=== PATIENT | female | born 1950 | race Caucasian/White ===

== ENCOUNTER 2016-07-31 03:26 | Observation (INO) | payer MEDICARE ==
--- NOTE | 2016-07-31 04:18 | ER Document Report ---
ED General - General Chief Complaint: Breathing Difficulty Stated Complaint: DIFFICULTY BREATHING Notes: Patient is 65-year-old female presents with complaint of cough congestion and felt sick for 1 week. She's also had some nausea and vomiting. She has seen her doctor 3 times. Her the nurse practitioner at her primary care clinic placed her on amoxicillin but she's allergic to it. I then placed her on doxycycline. Then give her codeine cough medicine. She is allergic to codeine and made her vomit violently. I called her and Tobi and she came in tonight because she continues to feel unwell. She says at home her oxygen saturation was 87%. She does not wear oxygen. She does have a history of left pneumonectomy. She has not had a fever home however is felt chilled at times. No abdominal pain. No chest pain. No other complaints at this time. TRAVEL OUTSIDE OF THE [place] IN LAST 30 DAYS: No - Related Data Allergies/Adverse Reactions: codeine [Codeine] Adverse Reaction (Mild, Verified 07/31/16 03:45) Nausea Past Medical History - Social History Smoking Status: Former Smoker Frequency of alcohol use: None Drug Abuse: None Family History: CAD - Past Medical History Cardiac Medical History: Reports: Hx Atrial Fibrillation - post pneumonectomy Pulmonary Medical History: Reports: Hx Bronchitis, Hx COPD, Hx Pneumonia Malignancy Medical History: Reports: Hx Lung Cancer GI Medical History: Reports: Hx Gastroesophageal Reflux Disease Past Surgical History: Reports: Hx Appendectomy, Hx Tubal Ligation - Immunizations Hx Diphtheria, Pertussis, Tetanus Vaccination: No Hx Pneumococcal Vaccination: 06/13/10 Review of Systems - Review of Systems Notes: My Normal Review Basic REVIEW OF SYSTEMS: CONSTITUTIONAL : Denies fever, chills, or sweats. Denies recent illness. EENT: Denies eye, ear, throat, or mouth pain or symptoms. Denies nasal or sinus congestion. CARDIOVASCULAR: Denies chest pain. RESPIRATORY: Cough and shortness of breath GASTROINTESTINAL: Denies abdominal pain. Some vomiting Denies constipation. Last BM: MUSCULOSKELETAL: Denies neck or back pain or joint pain or swelling. SKIN: Denies rash or skin lesions. NEUROLOGICAL: Denies altered mental status or loss of consciousness. Denies headache. Denies weakness or paralysis or loss of use of either side. Denies problems with gait or speech. Denies sensory or motor loss. ALL OTHER SYSTEMS REVIEWED AND NEGATIVE. Physical Exam - Vital signs Vitals: Temp Resp Pulse Ox 98 F 23 H 95 07/31/16 03:38 07/31/16 03:38 07/31/16 03:38 - Notes Notes: General Appearance: Well nourished, alert, cooperative, no acute distress, no obvious discomfort. Vitals: reviewed, See vital signs table. Head: no swelling or tenderness to the head Eyes: PERRL, EOMI, Conjuctiva clear Mouth: No decreasd moisture Throat: No tonsillar inflammation, No airway obstruction, No lymphadenopathy Neck: Supple, no neck tenderness, No thyromegaly Lungs: Fair exchange. Wheezing in the right lung phillips. Heart: Normal rate, Regular rythm, No murmur, no rub Abdomen: Normal BS, soft, No rigidity, No abdominal tenderness, No guarding, no rebound, no abdominal masses, no organomegaly Extremities: strength 5/5 in all extremities, good pulses in all extremities, no swelling or tenderness in the extremities, no edema. Skin: warm, dry, appropriate color, no rash Neuro: speech clear, oriented x 3, normal affect, responds appropriately to questions. Course - Vital Signs Vital signs: Temp Pulse Resp BP Pulse Ox 98.3 F 22 H 117/52 L 98 07/31/16 07:12 07/31/16 07:01 07/31/16 07:00 07/31/16 07:01 - Laboratory Result Diagrams: 07/31/16 04:07 07/31/16 04:07 Laboratory results interpreted by me: 07/31/16 07/31/16 04:07 04:07 Hct 34.9 L Seg Neutrophils % 78.8 H Sodium 133.3 L Chloride 94 L - EKG Interpretation by Me Additional EKG results interpreted by me: 07/31/16 04:17 EKG is reviewed and interpreted by me. EKG shows sinus rhythm with rate of 76 bpm. Patient does have a right bundle branch block which is unchanged in comparison to her old EKG from 11/29/2015. No new concerning ischemic changes. IA interval is within normal range. QRS duration QTC intervals are prolonged. - Transfer of Care Notes: 07/31/16 07:38 Patient has a significant improvement in auscultation of her lung; however, she still becomes hypoxic when you take her off oxygen. Her O2 sats dipped down into 88 to 89% when off oxygen. This is while she is at rest. I did not him later being that she was already hypoxic without inhalation. Patient is improved looking and she does feel improved however I do not for comfortable sending her home with the hypoxemia being she does not wear oxygen at home. I spoke with the hospitalist who agrees to admit the patient. Discharge - Discharge Clinical Impression: Bronchitis, Hypoxemia Condition: Stable Disposition: ADMITTED OBSERVATION Admitting Provider: Hospitalist Unit Admitted: Telemetry
[2016-07-31 04:24] LABS: ABSOLUTE LYMPHOCYTES (AUTO) 1.1 10^3/uL (0.5-4.7); ABSOLUTE MONOCYTES (AUTO) 0.5 10^3/uL (0.1-1.4); ABSOLUTE NEUT (AUTO) 5.9 10^3/uL (1.7-8.2); BASOPHILS % (AUTO) 0.2 % (0-2); EOSINOPHILS % (AUTO) 0.1 % (0-6); HEMATOCRIT 34.9 % (36.0-47.0); HGB HCT DIFFERENCE 1.1; MEAN CORPUSCULAR HEMOGLOBIN 30.4 pg (27.0-33.4); MEAN CORPUSCULAR HGB CONC 34.5 g/dL (32.0-36.0); MEAN CORPUSCULAR VOLUME 88 fl (80-97); MONOCYTES % (AUTO) 6.9 % (3-13); RED BLOOD COUNT 3.97 10^6/uL (3.72-5.28); RED CELL DISTRIBUTION WIDTH 12.6 % (11.5-14.0); SEGMENTED NEUTROPHILS % (AUTO) 78.8 % (42-78); WHITE BLOOD COUNT 7.5 10^3/uL (4.0-10.5)
[2016-07-31] MEDS ORDERED: METHYLPREDNISOLONE INJ 125 MG/2 ML SDV IV ONE (04:26)
[2016-07-31 04:31] LABS: ALANINE AMINOTRANSFERASE 27 U/L (9-52); ALKALINE PHOSPHATASE 62 U/L (38-126); ANION GAP 10 (5-19); ASPARTATE AMINO TRANSFERASE 26 U/L (14-36); BILIRUBIN,TOTAL 0.5 mg/dL (0.2-1.3); BLOOD UREA NITROGEN 13 mg/dL (7-20); CARBON DIOXIDE 29 mmol/L (22-30); CHLORIDE 94 mmol/L (98-107); CREATININE RESULT 0.56 mg/dL (0.52-1.25); GLUCOSE 99 mg/dL (75-110); POTASSIUM 3.6 mmol/L (3.6-5.0); SODIUM 133.3 mmol/L (137-145); TOTAL PROTEIN 6.5 g/dL (6.3-8.2)
[2016-07-31] MEDS ORDERED: IPRATROPIUM/ALBUTEROL 0.5-2.5 MG/3 ML AMPUL NEB ONE ×2 (04:54→06:08)
[2016-07-31] MEDS ORDERED: MAGNESIUM SULFATE/D5W 100 ML IV SCH (06:15)
[2016-07-31] MEDS ORDERED: VIT B COMP PO SCH (10:00)
[2016-07-31] MEDS ORDERED: CA CARBONATE PO SCH (10:00)
[2016-07-31] MEDS ORDERED: [UNRECOGNIZED DRUG - OTHER] PO SCH (10:00)
[2016-07-31] MEDS ORDERED: ENOXAPARIN SODIUM INJ 40 MG/0.4 ML DISP.SYRIN SUBCUT ONE (10:30)
--- NOTE | 2016-07-31 10:34 | EKG REPORT ---
SEVERITY:- ABNORMAL ECG - SINUS RHYTHM RBBB AND LPFB CONSIDER LEFT VENTRICULAR HYPERTROPHY : Confirmed by: Pooja Barbosa 31-Jul-2016 10:33:26
[2016-07-31] MEDS: MULTIVITAMIN TABLET PO SCH (11:35)
[2016-07-31] MEDS: TIOTROPIUM BROMIDE DPI 5 CAP/KIT (18 MCG/CAP) IH SCH (11:39)
--- NOTE | 2016-07-31 12:45 | PDOC H&P ---
History of Present Illness Admission Date/PCP: 07/31/16 09:32 THERESA HAYNES MD Patient complains of: Shortness of breath History of Present Illness: TORI ALDANA is a 65 year old female presents with complaint of cough congestion and felt sick for 1 week. She's also had some nausea and vomiting. She has seen her doctor 3 times. Her the nurse practitioner at her primary care clinic placed her on amoxicillin but she' s allergic to it. I then placed her on doxycycline. Then give her codeine cough medicine. She is allergic to codeine and made her vomit violently. I called her and Tobi and she came in tonight because she continues to feel unwell. She says at home her oxygen saturation was 87%. She does not wear oxygen. She does have a history of left pneumonectomy. She has not had a fever home however is felt chilled at times. No abdominal pain. No chest pain. No other complaints at this time. When evaluated in the ED she was found mildly dyspneic, oxygenating well on 2 L nasal cannula A chest x-ray did not show any infiltrate Patient was treated for COPD acute exacerbation, acute bronchitis, and admitted overnight for observation to telemetry unit Past Medical History Cardiac Medical History: Reports: Atrial Fibrillation - post pneumonectomy Pulmonary Medical History: Reports: Bronchitis, Chronic Obstructive Pulmonary Disease (COPD), Pneumonia Malignancy Medical History: Reports: Lung Cancer - In 2010 treated with left pneumonectomy and chemotherapy GI Medical History: Reports: Gastroesophageal Reflux Disease Musculoskeltal Medical History: Reports: None Skin Medical History: Reports: None Psychiatric Medical History: Reports: None Past Surgical History Past Surgical History: Reports: Appendectomy, Tubal Ligation, Other - Left pneumonectomy Social History Information Source: Patient Smoking Status: Former Smoker Frequency of Alcohol Use: None Hx Recreational Drug Use: No - Advance Directive Resuscitation Status: Full Code Surrogate healthcare decision maker:: JR Family History Family History: CAD Parental Family History Reviewed: Yes - mother of cancer of the lung Children Family History Reviewed: Yes Sibling(s) Family History Reviewed.: Yes - 4 siblings have various cancers Brother had cancer of the lung. Another brother had cancer of the throat; sister of mesothelioma Medication/Allergy Home Medications: Pediatric Multivit Comb No.101 [Gummy] 2 each PO DAILY 07/31/16 Simvastatin [Zocor 20 mg Tablet] 20 mg PO QHS 07/31/16 Tiotropium [place] [Spiriva Handihaler 5 Cap/Kit (18 Mcg/Cap)] 1 cap IH DAILY Vitamin B Complex [B Complex] 1 each PO DAILY 07/31/16 Allergies/Adverse Reactions: codeine [Codeine] Adverse Reaction (Mild, Verified 07/31/16 03:45) Nausea Review of Systems Constitutional: ABSENT: chills, fever(s), headache(s), weight gain, weight loss Eyes: ABSENT: visual disturbances Ears: ABSENT: hearing changes Cardiovascular: ABSENT: chest pain, dyspnea on exertion, edema, orthropnea, palpitations Respiratory: PRESENT: as per HPI, cough, dyspnea, sputum. ABSENT: hemoptysis Gastrointestinal: ABSENT: abdominal pain, constipation, diarrhea, hematemesis, hematochezia, nausea, vomiting Genitourinary: ABSENT: dysuria, hematuria Musculoskeletal: ABSENT: joint swelling Integumentary: ABSENT: rash, wounds Neurological: ABSENT: abnormal gait, abnormal speech, confusion, dizziness, focal weakness, syncope Psychiatric: ABSENT: anxiety, depression, homidical ideation, suicidal ideation Endocrine: ABSENT: cold intolerance, heat intolerance, polydipsia, polyuria Hematologic/Lymphatic: ABSENT: easy bleeding, easy bruising Physical Exam Vital Signs: Temp Pulse Resp BP Pulse Ox 98.3 F 18 120/49 L 97 07/31/16 07:12 07/31/16 12:10 07/31/16 12:11 07/31/16 12:11 General appearance: PRESENT: no acute distress, thin Head exam: PRESENT: atraumatic, normocephalic Eye exam: PRESENT: conjunctiva pink, EOMI, PERRLA. ABSENT: scleral icterus Ear exam: PRESENT: normal external ear exam Mouth exam: PRESENT: moist, tongue midline Neck exam: ABSENT: carotid bruit, JVD, lymphadenopathy, thyromegaly Respiratory exam: PRESENT: decreased breath sounds, rhonchi, unlabored, other - Diminished breath sounds in the left lung field. ABSENT: rales, wheezes Cardiovascular exam: PRESENT: RRR. ABSENT: diastolic murmur, rubs, systolic murmur Pulses: PRESENT: normal dorsalis pedis pul Vascular exam: PRESENT: normal capillary refill GI/Abdominal exam: PRESENT: normal bowel sounds, soft. ABSENT: distended, guarding, mass, organolmegaly, rebound, tenderness Rectal exam: PRESENT: deferred Extremities exam: PRESENT: full ROM. ABSENT: calf tenderness, clubbing, pedal edema Neurological exam: PRESENT: alert, awake, oriented to person, oriented to place , oriented to time, oriented to situation, CN II-XII grossly intact. ABSENT: motor sensory deficit Psychiatric exam: PRESENT: appropriate affect, normal mood. ABSENT: homicidal ideation, suicidal ideation Skin exam: PRESENT: dry, intact, warm. ABSENT: cyanosis, rash Results Laboratory Results: 07/31/16 07/31/16 04:07 04:07 Hct 34.9 L Seg Neutrophils % 78.8 H Sodium 133.3 L Chloride 94 L 07/31/16 04:07 07/31/16 04:07 MCV 88 fl (80-97) 07/31/16 04:07 MCH 30.4 pg (27.0-33.4) 07/31/16 04:07 MCHC 34.5 g/dL (32.0-36.0) 07/31/16 04:07 RDW 12.6 % (11.5-14.0) 07/31/16 04:07 Seg Neutrophils % 78.8 % (42-78) H 07/31/16 04:07 Lymphocytes % 14.0 % (13-45) 07/31/16 04:07 Monocytes % 6.9 % (3-13) 07/31/16 04:07 Eosinophils % 0.1 % (0-6) 07/31/16 04:07 Basophils % 0.2 % (0-2) 07/31/16 04:07 Absolute Neutrophils 5.9 10^3/uL (1.7-8.2) 07/31/16 04:07 Absolute Lymphocytes 1.1 10^3/uL (0.5-4.7) 07/31/16 04:07 Absolute Monocytes 0.5 10^3/uL (0.1-1.4) 07/31/16 04:07 Absolute Eosinophils 0.0 10^3/uL (0.0-0.6) 07/31/16 04:07 Absolute Basophils 0.0 10^3/uL (0.0-0.2) 07/31/16 04:07 Chloride 94 mmol/L (98-107) L 07/31/16 04:07 Carbon Dioxide 29 mmol/L (22-30) 07/31/16 04:07 Anion Gap 10 (5-19) 07/31/16 04:07 Est GFR ( Amer) > 60 (>60) 07/31/16 04:07 Est GFR (Non-Af Amer) > 60 (>60) 07/31/16 04:07 Glucose 99 mg/dL (75-110) 07/31/16 04:07 Calcium 9.0 mg/dL (8.4-10.2) 07/31/16 04:07 Total Bilirubin 0.5 mg/dL (0.2-1.3) 07/31/16 04:07 AST 26 U/L (14-36) 07/31/16 04:07 ALT 27 U/L (9-52) 07/31/16 04:07 Alkaline Phosphatase 62 U/L (38-126) 07/31/16 04:07 Total Protein 6.5 g/dL (6.3-8.2) 07/31/16 04:07 Albumin 4.0 g/dL (3.5-5.0) 07/31/16 04:07 Impressions: Chest X-Ray 07/31/16 03:44 IMPRESSION: Status post left pneumonectomy. No acute findings. Assessment & Plan - Diagnosis (1) Bronchitis Is this a current diagnosis for this admission?: YesPlan: We will treat the patient antibiotics steroids and nebs Reevaluate oximetry in a.m. Patient may be discharged on home O2 if needed (2) Hypoxemia Is this a current diagnosis for this admission?: YesPlan: Secondary to bronchitis, COPD exacerbation and clinical pneumonia (3) H/O pneumonectomy Is this a current diagnosis for this admission?: Yes - Time Time Spent with patient: Patient was admitted to telemetry as an observation Time Spent: 50 to 70 Minutes - Inpatient Certification Based on my medical assessment, after consideration of the patient's comorbidities, presenting symptoms, or acuity I expect that the services needed warrant INPATIENT care.: No I certify that my determination is in accordance with my understanding of Medicare's requirements for reasonable and necessary INPATIENT services [42 CFR 412.3e].: Yes
[2016-07-31] MEDS: IPRATROPIUM/ALBUTEROL 0.5-2.5 MG/3 ML AMPUL NEB SCH ×2 (13:22→19:26)
[2016-07-31] MEDS ORDERED: SIMETHICONE 80 MG TAB.CHEW PO PRN (14:48)
[2016-07-31] MEDS: NORMAL SALINE 1000 ML 1,000 ML IV PRN (16:30)
[2016-07-31] MEDS ORDERED: PREDNISONE 20 MG TABLET PO SCH (18:00)
[2016-07-31] MEDS: ACETAMINOPHEN 325 MG TABLET PO PRN (18:25)
[2016-07-31] MEDS ORDERED: SIMVASTATIN 40 MG TABLET PO SCH (22:00)
[2016-08-01] MEDS: IPRATROPIUM/ALBUTEROL 0.5-2.5 MG/3 ML AMPUL NEB SCH ×3 (01:16→13:13)
[2016-08-01 05:39] LABS: THYROID STIMULATING HORMONE 0.2 uIU/mL (0.47-4.68)
[2016-08-01 06:04] LABS: ALANINE AMINOTRANSFERASE 21 U/L (9-52); ALBUMIN 3.3 g/dL (3.5-5.0); ALKALINE PHOSPHATASE 58 U/L (38-126); ANION GAP 7 (5-19); ASPARTATE AMINO TRANSFERASE 18 U/L (14-36); BILIRUBIN,TOTAL 0.2 mg/dL (0.2-1.3); BLOOD UREA NITROGEN 12 mg/dL (7-20); CALCIUM 9.2 mg/dL (8.4-10.2); CARBON DIOXIDE 31 mmol/L (22-30); CHLORIDE 100 mmol/L (98-107); CREATININE RESULT 0.59 mg/dL (0.52-1.25); GLUCOSE 152 mg/dL (75-110); POTASSIUM 4.3 mmol/L (3.6-5.0); SODIUM 138.2 mmol/L (137-145); TOTAL PROTEIN 6.2 g/dL (6.3-8.2)
[2016-08-01] MEDS: NORMAL SALINE 1000 ML 1,000 ML IV PRN (06:29)
[2016-08-01] MEDS: ACETAMINOPHEN 325 MG TABLET PO PRN (06:29)
[2016-08-01] MEDS ORDERED: ENOXAPARIN SODIUM INJ 40 MG/0.4 ML DISP.SYRIN SUBCUT SCH (08:00)
[2016-08-01] MEDS: MULTIVITAMIN TABLET PO SCH (10:56)
[2016-08-01] MEDS: TIOTROPIUM BROMIDE DPI 5 CAP/KIT (18 MCG/CAP) IH SCH (10:56)
--- NOTE | 2016-08-01 14:35 | PDOC DISCHARGE SUMMARY ---
General - Admit/Disc Date/PCP Admission Date/Primary Care Provider: 07/31/16 09:32 THERESA HAYNES MD Discharge Date: 08/01/16 - Discharge Diagnosis (1) Bronchitis Is this a current diagnosis for this admission?: YesSummary: Patient was admitted with hypoxemia and cough The chest CTA was negative for PE ; chest x-ray did not show any infiltrate Patient likely had an acute bronchitis or COPD exacerbation She responded to IV steroids nebs, and was given antibiotics She was discharged on a prednisone taper and Zithromax by mouth She improved overnight; and at discharge the O2 sat is 92% on room air (2) Hypoxemia Is this a current diagnosis for this admission?: YesSummary: Patient had documented hypoxemia 87% on room air at home As mentioned above at discharge her O2 saturation is 92 She does not need supplemental oxygen (3) H/O pneumonectomy Is this a current diagnosis for this admission?: Yes - Additional Information Resuscitation Status: Full Code Discharge Diet: As Tolerated Discharge Activity: Activity As Tolerated Home Medications: Pediatric Multivit Comb No.101 [Gummy] 2 each PO DAILY 07/31/16 Simvastatin [Zocor 20 mg Tablet] 20 mg PO QHS 07/31/16 Tiotropium [place] [Spiriva Handihaler 5 Cap/Kit (18 Mcg/Cap)] 1 cap IH DAILY Vitamin B Complex [B Complex] 1 each PO DAILY 07/31/16 Azithromycin [Zithromax] 500 mg PO DAILY #10 tablet 08/01/16 Fluticasone/Salmeterol [Advair 250-50 Diskus 28 dose] 1 inh IH Q12H #1 inhaler 08/01/16 Prednisone 20 mg PO ASDIR #12 tablet 08/01/16 History of Present Illness Patient complains of: Shortness of breath History of Present Illness: TORI ALDANA is a 65 year old female presents with complaint of cough congestion and felt sick for 1 week. She's also had some nausea and vomiting. She has seen her doctor 3 times. Her the nurse practitioner at her primary care clinic placed her on amoxicillin but she' s allergic to it. I then placed her on doxycycline. Then give her codeine cough medicine. She is allergic to codeine and made her vomit violently. I called her and Tobi and she came in tonight because she continues to feel unwell. She says at home her oxygen saturation was 87%. She does not wear oxygen. She does have a history of left pneumonectomy. She has not had a fever home however is felt chilled at times. No abdominal pain. No chest pain. No other complaints at this time. When evaluated in the ED she was found mildly dyspneic, oxygenating well on 2 L nasal cannula A chest x-ray did not show any infiltrate Patient was treated for COPD acute exacerbation, acute bronchitis, and admitted overnight for observation to telemetry unit Hospital Course Hospital Course: See above Physical Exam Vital Signs: Temp Pulse Resp BP Pulse Ox 98.2 F 80 16 124/51 L 100 08/01/16 08:28 08/01/16 13:13 08/01/16 13:13 08/01/16 08:28 08/01/16 13:13 Intake & Output 07/31/16 08/01/16 08/02/16 00:59 00:59 00:59 Intake Total 461 1494 Output Total 700 Balance -239 1494 Weight 51.1 kg 51.1 kg General appearance: PRESENT: no acute distress Head exam: PRESENT: atraumatic, normocephalic Eye exam: PRESENT: conjunctiva pink, EOMI, PERRLA. ABSENT: scleral icterus Neck exam: ABSENT: carotid bruit, JVD, lymphadenopathy, thyromegaly Respiratory exam: PRESENT: clear to auscultation janina, decreased breath sounds. ABSENT: rales, rhonchi, wheezes Cardiovascular exam: PRESENT: RRR. ABSENT: diastolic murmur, rubs, systolic murmur GI/Abdominal exam: PRESENT: normal bowel sounds, soft. ABSENT: distended, guarding, mass, organolmegaly, rebound, tenderness Extremities exam: PRESENT: full ROM. ABSENT: calf tenderness, clubbing, pedal edema Neurological exam: PRESENT: alert, awake, oriented to person, oriented to place , oriented to time, oriented to situation, CN II-XII grossly intact. ABSENT: motor sensory deficit Results Laboratory Results: 08/01/16 04:36 08/01/16 08/01/16 04:36 04:36 Sodium 138.2 Potassium 4.3 Chloride 100 Carbon Dioxide 31 H Anion Gap 7 BUN 12 Creatinine 0.59 Est GFR ( Amer) > 60 Est GFR (Non-Af Amer) > 60 Glucose 152 H Calcium 9.2 Total Bilirubin 0.2 AST 18 ALT 21 Alkaline Phosphatase 58 Total Protein 6.2 L Albumin 3.3 L TSH 0.20 L Free T4 1.22 EKG Comments: . SINUS RHYTHM [RLPFB] . RBBB AND LPFB [LVHSR] . CONSIDER LEFT VENTRICULAR HYPERTROPHY Impressions: Chest X-Ray 07/31/16 03:44 IMPRESSION: Status post left pneumonectomy. No acute findings. Plan Discharge Plan: Patient was discharged home She will be followed by her primary care physician and pulmonology as an outpatient Time Spent: Less than 30 Minutes
[2016-08-01 16:50] VITALS: BP 118/51
== END 2016-08-01 17:11 | disposition home or self-care (01) ==
LOC: ER 03:26 → UNDOADMOB 08:39 → EH 08:39 → 5 16:13
PROVIDERS: ADMIT Emergency Medicine; ATTEND Emergency Medicine
PROC: 3E023GC Introduction of Other Therapeutic Substance into Muscle, Percutaneous Approach (ICD-10-PCS; principal; 2016-07-31)
PROC: 3E033GC Introduction of Other Therapeutic Substance into Peripheral Vein, Percutaneous Approach (ICD-10-PCS; 2016-07-31)
PROC: 3E033GC Introduction of Other Therapeutic Substance into Peripheral Vein, Percutaneous Approach (ICD-10-PCS; 2016-07-31)
PROC: 3E033GC Introduction of Other Therapeutic Substance into Peripheral Vein, Percutaneous Approach (ICD-10-PCS; 2016-07-31)
DX: J44.1 Chronic obstructive pulmonary disease with (acute) exacerbation (principal); J40 Bronchitis, not specified as acute or chronic; R09.02 Hypoxemia; Z90.2 Acquired absence of lung [part of]; Z99.81 Dependence on supplemental oxygen; Z85.118 Personal history of other malignant neoplasm of bronchus and lung; Z87.891 Personal history of nicotine dependence
CPT/HCPCS: 93005; 94640 ×4; 99285; 96372; 96375; 96365; 96366; 36415 ×2; 84439; 84443; 85025; 80053 ×2; 87804; 71010; 93010; G0378 ×3; A9270 ×9; J3490; J2930; J1650 ×2; J7030 ×2; J7512; J7620

== ENCOUNTER → 2016-08-16 | Outpatient (CLI) | payer MEDICARE | LOC: OD 11:28 | PROVIDERS: ATTEND Physician Assistant Medical | DX: J44.9 Chronic obstructive pulmonary disease, unspecified (principal) | CPT/HCPCS: 71020 ==

== ENCOUNTER 2018-05-16 21:56 | Observation (INO) | payer MEDICARE ==
--- NOTE | 2018-05-16 22:19 | ER Document Report ---
ED General - General Stated Complaint: CHEST PAIN Time Seen by Provider: 05/16/18 22:17 Notes: Patient is a 67-year-old female presents with complaint of chest pain. Chest pain is substernal nonradiating. She says it came on around 8:30 PM while she was watching TV. She was not doing anything exertional. She says it is a severe tightness in her chest. She thought maybe it was gas related being she is never had this pain before and therefore she took some form of antacid but did not help and therefore she called EMS. And once arrived. They gave her 3 sublingual nitro which improved her pain and then placed an inch of Nitropaste on her. She took 4 baby aspirin at home before the ambulance arrived. She has no history of coronary disease. She is a former smoker. She quit 2010. She has a history of lung cancer for which she had a left pneumonectomy. She is been cancer free now for several years. No recent fevers or infections. No vomiting. She had some slight nausea during this episode. Some shortness of breath. No diaphoresis. No abdominal pain. No other complaints at this time. TRAVEL OUTSIDE OF THE [place] IN LAST 30 DAYS: No - Related Data Allergies/Adverse Reactions: codeine [Codeine] Adverse Reaction (Mild, Verified 07/31/16 03:45) Nausea Past Medical History - Social History Smoking Status: Former Smoker Frequency of alcohol use: None Drug Abuse: None Family History: CAD - Past Medical History Cardiac Medical History: Reports: Hx Atrial Fibrillation - post pneumonectomy Pulmonary Medical History: Reports: Hx Bronchitis, Hx COPD, Hx Pneumonia Malignancy Medical History: Reports: Hx Lung Cancer - In 2010 treated with left pneumonectomy and chemotherapy GI Medical History: Reports: Hx Gastroesophageal Reflux Disease, Hx Ulcer Past Surgical History: Reports: Hx Appendectomy, Hx Tubal Ligation, Other - Left pneumonectomy - Immunizations Hx Diphtheria, Pertussis, Tetanus Vaccination: No Hx Pneumococcal Vaccination: 06/13/10 Review of Systems - Review of Systems Notes: My Normal Review Basic REVIEW OF SYSTEMS: CONSTITUTIONAL : Denies fever, chills, or sweats. Denies recent illness. EENT: Denies eye, ear, throat, or mouth pain or symptoms. Denies nasal or sinus congestion. CARDIOVASCULAR: Had chest pain RESPIRATORY: Denies cough, cold, or chest congestion. Denies shortness of breath, difficulty breathing, or wheezing. GASTROINTESTINAL: Denies abdominal pain. Denies nausea, vomiting, or diarrhea. MUSCULOSKELETAL: Denies neck or back pain or joint pain or swelling. SKIN: Denies rash or skin lesions. NEUROLOGICAL: Denies altered mental status or loss of consciousness. Denies headache. Denies weakness or paralysis or loss of use of either side. Denies problems with gait or speech. Denies sensory or motor loss. ALL OTHER SYSTEMS REVIEWED AND NEGATIVE. Physical Exam - Vital signs Vitals: Temp Pulse Resp BP Pulse Ox 98.2 F 89 19 127/79 H 95 05/16/18 22:28 12 22:28 12 22:28 05/16/18 22:28 05/16/18 22:28 - Notes Notes: General Appearance: Well nourished, alert, cooperative, no acute distress, no obvious discomfort. Well-appearing. Vitals: reviewed, See vital signs table. Head: no swelling or tenderness to the head Eyes: PERRL, EOMI, Conjuctiva clear Mouth: No decreasd moisture Lungs: No wheezing, No rales, No rhonci, No accessory muscle use, good air exchange bilaterally. Heart: Normal rate, Regular rythm, No murmur, no rub Abdomen: Normal BS, soft, No rigidity, No abdominal tenderness, No guarding, no rebound, Extremities: sgood pulses in all extremities, no swelling or tenderness in the extremities, no edema. Skin: warm, dry, appropriate color, no rash Neuro: speech clear, oriented x 3, normal affect, responds appropriately to questions. Course - Re-evaluation Re-evalutation: 05/16/18 22:18 05/16/18 23:00 Patient started having chest pain again. We will order another subungual nitro. For Tylenol for headache that she has acquired from the previous nitro. I have ordered a repeat EKG. 05/16/18 23:08 05/17/18 01:16 Patient's pain is resolved after receiving a small amount of morphine. Also gave her some Pepcid. The pain could be related to a gastrointestinal source being that she has history of hiatal hernia however this does not feel similar to her as compared to her previous gas intestinal pain. Also her initial pain was relieved with nitro. She has several cardiac risk factors and therefore I think is appropriate to admit her for chest pain rule out. I did speak with the hospitalist, Dr. Russell, who agrees to evaluate the patient. Dictation of this chart was performed using voice recognition software; therefore, there may be some unintended grammatical errors. - Vital Signs Vital signs: Temp Pulse Resp BP Pulse Ox 98.2 F 89 15 122/62 97 05/16/18 22:28 05/16/18 22:28 05/17/18 01:00 05/17/18 01:01 05/17/18 01:00 - Laboratory Result Diagrams: 05/16/18 21:50 05/16/18 21:50 Laboratory results interpreted by me: 05/16/18 05/16/18 21:50 21:50 Hct 34.7 L Glucose 131 H - EKG Interpretation by Me Additional EKG results interpreted by me: 05/16/18 23:08 EKG is reviewed and interpreted by me. EKG shows sinus rhythm with a rate of 92 bpm. Patient does have some abnormality to the QRS especially in the precordial leads however this is unchanged comparison to his previous EKG from July 31, 2016. No new ST segment changes. [place] interval, QTc intervals are within normal range. QRS duration is prolonged. EKG #2 is reviewed and interpreted by me. EKG #2 was performed the patient was having recurrence of chest pain. EKG shows sinus rhythm with rate of 83 bpm. There are no new ST segment changes. No new T wave inversions in comparison to the patient's previous EKG. [place] interval and QTc intervals are within normal range. QRS duration is prolonged. Discharge - Discharge Clinical Impression: Chest pain Qualifiers: Chest pain type: unspecified Qualified Code(s): R07.9 - Chest pain, unspecified Condition: Stable Disposition: ADMITTED OBSERVATION Admitting Provider: Hospitalist Unit Admitted: Telemetry Referrals: THIAGO SALES PA-C [NO LOCAL MD] - Follow up as needed
[2018-05-16] MEDS ORDERED: NITROGLYCERIN 0.4 MG/TAB 25 TAB/BOTTLE SL ONE (22:57)
[2018-05-16] MEDS ORDERED: ACETAMINOPHEN 325 MG TABLET PO ONE (22:58)
[2018-05-16 23:11] LABS: ABSOLUTE EOSINOPHILS # (AUTO) 0.2 10^3/uL (0.0-0.6); ABSOLUTE MONOCYTES (AUTO) 0.5 10^3/uL (0.1-1.4); ABSOLUTE NEUT (AUTO) 3.5 10^3/uL (1.7-8.2); BASOPHILS % (AUTO) 0.5 % (0-2); EOSINOPHILS % (AUTO) 2.1 % (0-6); HEMATOCRIT 34.7 % (36.0-47.0); LYMPHOCYTES % (AUTO) 41.8 % (13-45); MEAN CORPUSCULAR HEMOGLOBIN 31.9 pg (27.0-33.4); MEAN CORPUSCULAR HGB CONC 34.7 g/dL (32.0-36.0); MEAN CORPUSCULAR VOLUME 92 fl (80-97); MONOCYTES % (AUTO) 7.2 % (3-13); PLATELET COUNT 227 10^3/uL (150-450); RED BLOOD COUNT 3.78 10^6/uL (3.72-5.28); RED CELL DISTRIBUTION WIDTH 12.9 % (11.5-14.0); SEGMENTED NEUTROPHILS % (AUTO) 48.4 % (42-78); TOTAL CELLS COUNTED % (AUTO) 100 %; WHITE BLOOD COUNT 7.3 10^3/uL (4.0-10.5)
[2018-05-16 23:17] LABS: ALANINE AMINOTRANSFERASE 13 U/L (9-52); ALBUMIN 4.1 g/dL (3.5-5.0); ALKALINE PHOSPHATASE 69 U/L (38-126); ANION GAP 14 (5-19); ASPARTATE AMINO TRANSFERASE 24 U/L (14-36); BILIRUBIN,DIRECT 0.2 mg/dL (0.0-0.4); BILIRUBIN,TOTAL 0.2 mg/dL (0.2-1.3); BLOOD UREA NITROGEN 19 mg/dL (7-20); CALCIUM 9.4 mg/dL (8.4-10.2); CARBON DIOXIDE 27 mmol/L (22-30); CHLORIDE 99 mmol/L (98-107); GLUCOSE 131 mg/dL (75-110); POTASSIUM 3.9 mmol/L (3.6-5.0); SODIUM 139.8 mmol/L (137-145)
--- NOTE | 2018-05-16 23:35 | RADIOLOGY REPORT (SQ) ---
EXAM DESCRIPTION: XR CHEST 1 VIEW COMPLETED DATE/TME: 05/16/2018 22:59 CLINICAL HISTORY: 67 years Female, chest pain COMPARISON:08/16/2016, report only. April 04, 2016. NUMBER OF VIEWS/TECHNIQUE: 1/AP FINDINGS: Chronic obscured left hemithorax, leftward cardiac and mediastinal shift consistent with previously described left pneumonectomy, increased right lung volume, upper mediastinal/left upper thoracic clips, and intact bony thorax. IMPRESSION: No acute cardiopulmonary findings. Chronic left pneumonectomy pattern, stable.
[2018-05-16] MEDS ORDERED: ONDANSETRON HCL INJ/PF 4 MG/2 ML SDV IV ONE (23:47)
[2018-05-16] MEDS ORDERED: MORPHINE SULFATE 10 MG/ML INJ IV ONE (23:47)
[2018-05-16] MEDS ORDERED: FAMOTIDINE INJ/PF 20 MG/2 ML SDV IV ONE (23:49)
[2018-05-17] MEDS ORDERED: NITROGLYCERIN 0.4 MG/TAB 25 TAB/BOTTLE SL PRN (01:16)
[2018-05-17 04:31] LABS: CREATINE KINASE MB 0.68 ng/mL (<4.55)
[2018-05-17 04:33] LABS: TROPONIN I < 0.012 ng/mL
--- NOTE | 2018-05-17 06:44 | PDOC H&P ---
History of Present Illness Admission Date/PCP: 05/17/18 01:41 Patient complains of: Chest pain History of Present Illness: TORI ALDANA is a 67 year old female with a past medical history of pneumonectomy with chemotherapy for lung cancer in 2010 subsequently cancer free , COPD and bronchitis. Patient presents with 2 hours of retrosternal chest pain occurring while at rest and was 3 out of 5 intensity, nonradiating, retrosternal, pressure in nature not associated with palpitations or diaphoresis but some nausea and abdominal pain. She denies exacerbating factors but admits nitroglycerin x3 relieved pain. In the emergency room she has an unremarkable workup and is referred to the hospitalist for admission. Patient states last cardiac stress test greater than 1 year ago was unremarkable. She is currently pain-free and referred to the hospitalist for admission Past Medical History Pulmonary Medical History: Reports: Bronchitis, Chronic Obstructive Pulmonary Disease (COPD), Pneumonia Malignancy Medical History: Reports: Lung Cancer - In 2010 treated with left pneumonectomy and chemotherapy GI Medical History: Reports: Gastroesophageal Reflux Disease Past Surgical History Past Surgical History: Reports: Appendectomy, Tubal Ligation, Other - Left pneumonectomy Social History Information Source: Patient Smoking Status: Former Smoker Frequency of Alcohol Use: None Hx Recreational Drug Use: No Drugs: None - Advance Directive Resuscitation Status: Full Code Family History Family History: CAD Parental Family History Reviewed: Yes Children Family History Reviewed: Yes Sibling(s) Family History Reviewed.: Yes Medication/Allergy Home Medications: Pediatric Multivitamin No.101 [Gummy] 2 each PO DAILY 07/31/16 Simvastatin [Zocor 20 mg Tablet] 20 mg PO QHS 07/31/16 Tiotropium [place] [Spiriva Handihaler 5 Cap/Kit (18 Mcg/Cap)] 1 cap IH DAILY Vitamin B Complex [B Complex] 1 each PO DAILY 07/31/16 Azithromycin [Zithromax] 500 mg PO DAILY #10 tablet 08/01/16 Fluticasone/Salmeterol [Advair 250-50 Diskus 28 dose] 1 inh IH Q12H #1 inhaler 08/01/16 Prednisone 20 mg PO ASDIR #12 tablet 08/01/16 Allergies/Adverse Reactions: codeine [Codeine] Adverse Reaction (Mild, Verified 07/31/16 03:45) Nausea Review of Systems Constitutional: ABSENT: chills, fever(s), headache(s), weight gain, weight loss Eyes: ABSENT: visual disturbances Ears: ABSENT: hearing changes Cardiovascular: ABSENT: chest pain, dyspnea on exertion, edema, orthropnea, palpitations Respiratory: ABSENT: cough, hemoptysis Gastrointestinal: ABSENT: abdominal pain, constipation, diarrhea, hematemesis, hematochezia, nausea, vomiting Genitourinary: ABSENT: dysuria, hematuria Musculoskeletal: ABSENT: joint swelling Integumentary: ABSENT: rash, wounds Neurological: ABSENT: abnormal gait, abnormal speech, confusion, dizziness, focal weakness, syncope Psychiatric: ABSENT: anxiety, depression, homidical ideation, suicidal ideation Endocrine: ABSENT: cold intolerance, heat intolerance, polydipsia, polyuria Hematologic/Lymphatic: ABSENT: easy bleeding, easy bruising Physical Exam Vital Signs: Temp Pulse Resp BP Pulse Ox 98.2 F 89 16 109/63 95 05/16/18 22:28 05/16/18 22:28 05/17/18 06:01 05/17/18 06:00 05/17/18 06:01 General appearance: PRESENT: no acute distress, well-developed, well-nourished Head exam: PRESENT: atraumatic, normocephalic Eye exam: PRESENT: conjunctiva pink, EOMI, PERRLA. ABSENT: scleral icterus Ear exam: PRESENT: normal external ear exam Mouth exam: PRESENT: moist, tongue midline Neck exam: ABSENT: carotid bruit, JVD, lymphadenopathy, thyromegaly Respiratory exam: PRESENT: clear to auscultation janina. ABSENT: rales, rhonchi, wheezes Cardiovascular exam: PRESENT: RRR. ABSENT: diastolic murmur, rubs, systolic murmur Pulses: PRESENT: normal dorsalis pedis pul Vascular exam: PRESENT: normal capillary refill GI/Abdominal exam: PRESENT: normal bowel sounds, soft. ABSENT: distended, guarding, mass, organolmegaly, rebound, tenderness Rectal exam: PRESENT: deferred Extremities exam: PRESENT: full ROM. ABSENT: calf tenderness, clubbing, pedal edema Neurological exam: PRESENT: alert, awake, oriented to person, oriented to place , oriented to time, oriented to situation, CN II-XII grossly intact. ABSENT: motor sensory deficit Psychiatric exam: PRESENT: appropriate affect, normal mood. ABSENT: homicidal ideation, suicidal ideation Skin exam: PRESENT: dry, intact, warm. ABSENT: cyanosis, rash Results Laboratory Results: 05/17/18 05/17/18 03:55 03:55 Creatine Kinase 44 CK-MB (CK-2) 0.68 Troponin I < 0.012 Impressions: Chest X-Ray 05/16/18 22:59 IMPRESSION: No acute cardiopulmonary findings. Chronic left pneumonectomy pattern, stable. Assessment & Plan - Diagnosis (1) Atypical chest pain Is this a current diagnosis for this admission?: Yes Plan: Atypical chest pain though the patient's pain is atypical there are multiple risk factors for coronary artery disease and subsequently will observe and evaluation of acute coronary syndrome versus coronary artery disease with anginal equivalents. Cardiac monitoring blood pressure Q6 hours ,TSH, lipid profile, serial cardiac enzymes and cardiac stress test (2) COPD (chronic obstructive pulmonary disease) Is this a current diagnosis for this admission?: Yes Plan: Outpatient regiment with supplemental oxygen, albuterol and Atrovent (3) Gastroesophageal reflux Is this a current diagnosis for this admission?: Yes Plan: Proton pump inhibitor twice daily - Time Time Spent: 30 to 50 Minutes
[2018-05-17] MEDS ORDERED: ONDANSETRON HCL INJ/PF 4 MG/2 ML SDV IV PRN (08:13)
[2018-05-17] MEDS: ACETAMINOPHEN 325 MG TABLET PO PRN ×2 (08:34→18:41)
[2018-05-17] MEDS: NORMAL SALINE 1000 ML 1,000 ML IV PRN (09:21)
[2018-05-17 10:57] LABS: CREATINE KINASE MB 0.71 ng/mL (<4.55)
[2018-05-17 11:01] LABS: TROPONIN I < 0.012 ng/mL
--- NOTE | 2018-05-17 11:58 | EKG REPORT ---
SEVERITY:- ABNORMAL ECG - SINUS RHYTHM RIGHT ATRIAL ABNORMALITY IVCD, CONSIDER ATYPICAL RBBB LVH BY VOLTAGE : Confirmed by: Pooja Barbosa 17-May-2018 11:57:55
--- NOTE | 2018-05-17 11:58 | EKG REPORT ---
SEVERITY:- ABNORMAL ECG - SINUS RHYTHM IVCD, CONSIDER ATYPICAL RBBB LVH WITH SECONDARY REPOLARIZATION ABNORMALITY : Confirmed by: Pooja Barbosa 17-May-2018 11:57:50
[2018-05-17] MEDS ORDERED: REGADENOSON INJ 0.4 MG/5 ML DISP.SYRIN IV ONE (14:33)
[2018-05-17] MEDS: FLUTICASONE/SALMETEROL DISKUS 250-50 MCG/DOSE IH SCH ×2 (17:44→21:36)
[2018-05-17] MEDS: ASPIRIN 81 MG TABLET, ENT COATED PO SCH (17:44)
[2018-05-17] MEDS: FAMOTIDINE INJ/PF 20 MG/2 ML SDV IV SCH ×2 (17:45→21:36)
[2018-05-17] MEDS: TIOTROPIUM BROMIDE DPI 5 CAP/KIT (18 MCG/CAP) IH SCH (17:46)
--- NOTE | 2018-05-17 17:59 | DRAGON STRESS TEST REPORT ---
INTRAVENOUS LEXISCAN CARDIOLITE STRESS TEST USING SINGLE PHOTON EMMISION COMPUTERIZED TOMOGRAPHIC. DATE OF PROCEDURE: May 17, 2018, INDICATION : Chest pain CARDIAC RISK FACTORS: Dyslipidemia and family history of CAD RESTING EKG: Sinus rhythm, right bundle branch block pattern, RVH. Secondary ST -T wave changes noted. STRESS EKG: No significant ST segment changes noted with LexiScan bolus REASON FOR TERMINATION: Protocol. PROCEDURE REPORT: Baseline heart rate 78 beats per minute with blood pressure of 139/77. Patient had no significant complaints. Patient was bolused with Lexiscan 0.4 mg intravenously followed by saline bolus. Heart rate at 2 minutes post bolus 109 with a blood pressure of 158/73. 3 minutes post bolus heart rate 104 with blood pressure of 169/75. No significant EKG changes were noted. Patient had no significant complaints during the procedure or postprocedure. CONCLUSIONS: Normal EKG and hemodynamic response to IV LexiScan. NUCLEAR DATA: At rest the patient was given 10.78 millicuries of technetium 99 sestamibi injected intravenously. As per protocol rest gated SPECT images were obtained. On day of stress test, the patient was given intravenous LexiScan at a dose of 0.4 mg in 5 mL intravenously, followed by flush with normal saline. Subsequently the stress dose of 32.3 millicuries of technetium 99 sestamibi was injected intravenously. As per protocol stress gated images were obtained. NUCLEAR INTERPRETATION: Both raw and processed data were used for interpretation. Visual, qualitative, computer-generated quantitative data was used. There was good myocardial uptake of technetium compound. Motion artifact and soft tissue attenuations were noted. Increased visceral uptake was noted. No definitive areas of transient perfusion defect noted, No definitive areas of fixed perfusion defect or scars noted. EKG gated imaging showed LV EF at 76 %, rest and stress gated EF similar visually. T. I D. ratio was 1.33. Lung heart ratio noted to be within normal limits 0.39. No significant extracardiac and abnormal radiotracer activities were noted. RV free wall uptake was noted to be WNL. IMPRESSION: Also refer to comments under nuclear interpretation. Also test results needs to be interpreted in the context of pretest probability. 1. No definitive areas of transient perfusion defect noted. 2. There is no definitive scintigraphic evidence of myocardial infarction/scar. 3. EKG gated imaging shows left ventricular ejection fraction of approx. 76 %. 4. Transient ischemic dilatation noted. This is felt to be falsely high because of small LV cavity. Also based on most recent literature review, transient ischemic dilatation may not relate to excess cardiovascular event risk in the absence of perfusion abnormalities. Journal of nuclear medicine, 2014 clinical correlation requested as worse disease and or balanced ischemia could be missed. In approximately 10% of the cases Lexiscan may not cause adequate vasodilatory stress. RECOMMENDATIONS: Aggressive risk factor modification and medical management. Further evaluation may be needed if continued symptoms or other high risk indicators are noted on clinical evaluation. Close cardiology follow-up is also recommended. Clinical correlation with echocardiogram derived ejection fraction. Inability to exercise by itself can lead to increased cardiovascular event risks. Consider cardiology consultation and or follow-up if clinically indicated. I am available for cardiology evaluation and consultation if requested by the material flow engineer, unless patient already has a canteen attendant. Dr. Sandip Barbosa. MRCP Board certified in cardiology and sleep medicine. Board certified in nuclear cardiology, adult echocardiography. MERCEDEZ
[2018-05-17 19:00] LABS: CREATINE KINASE MB 0.78 ng/mL (<4.55)
[2018-05-17 19:04] LABS: TROPONIN I < 0.012 ng/mL
[2018-05-17] MEDS ORDERED: SIMVASTATIN 40 MG TABLET PO SCH (22:00)
[2018-05-17] MEDS ORDERED: ATORVASTATIN CALCIUM 80 MG TABLET PO SCH (22:00)
[2018-05-18] MEDS: NORMAL SALINE 1000 ML 1,000 ML IV PRN (04:04)
[2018-05-18 05:49] LABS: CHOLESTEROL 163.99 mg/dL (0-200); CREATINE KINASE 40 U/L (30-135); TRIGLYCERIDES 97 mg/dL (<150)
[2018-05-18 06:00] LABS: DIRECT LDL 98 mg/dL (<100)
[2018-05-18] MEDS: ACETAMINOPHEN 325 MG TABLET PO PRN (06:30)
[2018-05-18] MEDS: FLUTICASONE/SALMETEROL DISKUS 250-50 MCG/DOSE IH SCH (10:05)
[2018-05-18] MEDS: TIOTROPIUM BROMIDE DPI 5 CAP/KIT (18 MCG/CAP) IH SCH (10:06)
[2018-05-18] MEDS: ASPIRIN 81 MG TABLET, ENT COATED PO SCH (10:06)
[2018-05-18] MEDS: FAMOTIDINE INJ/PF 20 MG/2 ML SDV IV SCH (10:06)
[2018-05-18 11:46] VITALS: BP 114/53
--- NOTE | 2018-05-18 19:12 | PDOC DISCHARGE SUMMARY ---
General - Admit/Disc Date/PCP Admission Date/Primary Care Provider: 05/17/18 01:41 Discharge Date: 05/18/18 - Discharge Diagnosis (1) Atypical chest pain Is this a current diagnosis for this admission?: Yes (2) Gastroesophageal reflux Is this a current diagnosis for this admission?: Yes - Additional Information Resuscitation Status: Full Code Discharge Diet: As Tolerated, Cardiac Discharge Activity: Activity As Tolerated Prescriptions: Fluticasone/Salmeterol [Advair 250-50 Diskus 14 Dose/Diskus] 1 inh IH Q12 #1 inhaler Pantoprazole Sodium [Protonix] 40 mg PO QAM #30 tablet. Home Medications: Pediatric Multivitamin No.101 [Gummy] 2 each PO DAILY 07/31/16 Simvastatin [Zocor 20 mg Tablet] 40 mg PO QHS 07/31/16 Tiotropium [place] [Spiriva Handihaler 5 Cap/Kit (18 Mcg/Cap)] 1 cap IH DAILY Albuterol Sulfate [Ventolin Hfa 8 gm Mdi (1 Mdi/ER Disp)] 2 puff PO Q6HP PRN 10/28 Fluticasone/Salmeterol [Advair 250-50 Diskus 14 Dose/Diskus] 1 inh IH Q12 #1 inhaler 05/18/18 Pantoprazole Sodium [Protonix] 40 mg PO QAM #30 tablet. 05/18/18 History of Present Illness History of Present Illness: Admitting hospitalist's H&P: TORI ALDANA is a 67 year old female with a past medical history of pneumonectomy with chemotherapy for lung cancer in 2010 in remission, COPD and bronchitis who presented with retrosternal chest pain occurring while at rest and was 3 out of 5 intensity, nonradiating, retrosternal, pressure in nature not associated with palpitations or diaphoresis but some nausea and abdominal pain. She denies exacerbating factors but admits nitroglycerin x3 relieved pain. In the emergency room she has an unremarkable workup and is referred to the hospitalist for admission. Patient states last cardiac stress test greater than 1 year ago was unremarkable. She is currently pain-free and referred to the hospitalist for admission. Hospital Course Hospital Course: Ms. Schreiber is a 67-year-old female who was initially admitted with chest pain. Patient EKG did not show any acute changes. EKG shows right bundle branch block pattern which is chronic when compared to her previous EKGs. Her troponins were cycled and came back negative. She did report to me today that she does have a history of hiatal hernia and GERD. She says she was supposed to be on Prilosec but she self discontinued this. She will be given a new prescription for her Protonix and was recommended to follow-up with her PCP. She was agreeable to resuming PPI again. Physical Exam Vital Signs: Temp Pulse Resp BP Pulse Ox 98.0 F 76 14 114/53 L 100 05/18/18 11:42 05/18/18 11:42 05/18/18 11:42 05/18/18 11:42 05/18/18 11:42 Intake & Output 05/17/18 05/18/18 05/19/18 06:59 06:59 06:59 Intake Total 2042 827 Balance 2042 827 Weight 255 lb 11.779 oz General appearance: PRESENT: no acute distress, well-developed, well-nourished Head exam: PRESENT: atraumatic, normocephalic Eye exam: PRESENT: conjunctiva pink, EOMI, PERRLA. ABSENT: scleral icterus Ear exam: PRESENT: normal external ear exam Mouth exam: PRESENT: moist, tongue midline Neck exam: ABSENT: carotid bruit, JVD, lymphadenopathy, thyromegaly Respiratory exam: PRESENT: clear to auscultation janina. ABSENT: rales, rhonchi, wheezes Cardiovascular exam: PRESENT: RRR. ABSENT: diastolic murmur, rubs, systolic murmur Pulses: PRESENT: normal dorsalis pedis pul GI/Abdominal exam: PRESENT: normal bowel sounds, soft. ABSENT: distended, guarding, mass, organolmegaly, rebound, tenderness Rectal exam: PRESENT: deferred Extremities exam: PRESENT: full ROM. ABSENT: calf tenderness, clubbing, pedal edema Neurological exam: PRESENT: alert, awake, oriented to person, oriented to place , oriented to time, oriented to situation, CN II-XII grossly intact. ABSENT: motor sensory deficit Results Laboratory Results: 05/18/18 05:14 Triglycerides 97 Cholesterol 163.99 LDL Cholesterol Direct 98 VLDL Cholesterol 19.0 HDL Cholesterol 63 05/17/18 05/17/18 05/17/18 03:55 03:55 07:45 Creatine Kinase 44 CK-MB (CK-2) 0.68 Troponin I < 0.012 < 0.012 05/17/18 05/17/18 05/18/18 10:00 17:40 05:14 Creatine Kinase 40 CK-MB (CK-2) 0.71 0.78 Troponin I < 0.012 < 0.012 Impressions: Chest X-Ray 05/16/18 22:59 IMPRESSION: No acute cardiopulmonary findings. Chronic left pneumonectomy pattern, stable. Qualifiers - * PATIENT BEING DISCHARGED WITH ANY OF THE FOLLOWING DIAGNOSIS: No
== END 2018-05-18 12:35 | disposition home or self-care (01) ==
LOC: ER 21:56 → EH 05-17 01:41 → 4W 05-17 12:07
PROVIDERS: ADMIT Internal Medicine; ATTEND Internal Medicine
DX: R07.89 Other chest pain (principal); K21.9 Gastro-esophageal reflux disease without esophagitis; I45.10 Unspecified right bundle-branch block; J44.9 Chronic obstructive pulmonary disease, unspecified; Z79.899 Other long term (current) drug therapy; Z85.118 Personal history of other malignant neoplasm of bronchus and lung; Z90.2 Acquired absence of lung [part of]; Z92.21 Personal history of antineoplastic chemotherapy; Z87.19 Personal history of other diseases of the digestive system; Z90.49 Acquired absence of other specified parts of digestive tract; Z87.891 Personal history of nicotine dependence; Z82.49 Family history of ischemic heart disease and other diseases of the circulatory system; Z79.51 Long term (current) use of inhaled steroids; Z79.52 Long term (current) use of systemic steroids; Z87.01 Personal history of pneumonia (recurrent)
CPT/HCPCS: 93005; 96376; 99285; 96374; 96375; 36415 ×3; 82553; 82550 ×2; 84443; 85025; 80053; 84484 ×2; 83036; 80061; 93017; 71045; 78452; 93010; G0378 ×3; A9500; J2785; A9270 ×5; J3490 ×3; J2270; J2405; J7030 ×2; S0028 ×2; Q9969